=== PATIENT | female | born 1970 | race African-American/Black ===

== ENCOUNTER 2019-11-30 11:49 | Emergency (ER) | payer BC ==
[~2019-11-30] VITALS: Ht 167.6 cm; Wt 85.5 kg
--- NOTE | 2019-11-30 14:30 | Diagnostic Imaging Report ---
Exam: Right forearm radiographs-2 views; right wrist radiographs-3 views History: Fall, pain. Comparison: None. Findings/impression: There is a nondisplaced fracture of the distal radial metaphysis with intra-articular extension. Additional nondisplaced fracture of the ulnar styloid process. Surrounding soft tissue edema in the distal forearm, wrist, and visualized hand. Signed by: Dr. Eve Sharma MD on 11/30/2019 2:27 PM
--- NOTE | 2019-11-30 14:55 | Emergency Department Note ---
History of Present Illnes History of Present Illness Chief Complaint: Extremity Trauma/Pain History of Present Illness This is a 49 year old female Chief Complaint Comment Reports that she slipped and fell on the tile on Sunday and caught herself with her right hand to not hit her head and had pain in her wrist and hand all day yesterday but controlled the pain with tylenol and motrin. Pt now has significant swelling to the right hand with pain in the wrist with limited ROM. . Historian: Patient Arrival Mode: Car Onset (how long ago): day(s) (2) Location: right wrist Quality: sharp Radiation: Denies non-radiation, Denies back, Denies neck, Denies extremity, Denies abdomen, Denies periumbilical, Denies flank, Denies proximal, Denies distal, Denies other Severity: moderate Onset quality: gradual Duration (how long): day(s) (2) Timing of current episode: constant Progression: unchanged Chronicity: new Context: Denies recent illness, Denies recent surgery, Denies recent immobilization, Denies recent travel, Denies trauma/injury, Denies new medications, Denies hx of DVT/PE, Denies non-compliance w/ medications, Denies other Relieving factors: none Exacerbating factors: none Associated symptoms: Reports denies other symptoms Treatments prior to arrival: none Past Medical/Family History Physician Review I have reviewed the patient's past medical and family history. Any updates have been documented here. Past Medical History Recent Fever: No Clinical Suspicion of Infectio: No New/Unexplained Change in Ment: No Past Medical History: Diabetes Past Surgical History: None Social History Smoking Cessation: Never Smoker Counseling Performed: No Alcohol Use: Occasional Any Illegal Drug Use: No TB Exposure/Symptoms: No Physically hurt or threatened: No Family History Family history of heart diseas: Yes Other Any Pre-Existing Lines (PICC,: No Is patient up to date on immun: Yes Last Flu: UTD Last Pneumovax: none Review of Systems Review of Systems Constitutional: Reports no symptoms EENTM: Reports no symptoms Cardiovascular: Reports no symptoms Respiratory: Reports no symptoms Gastrointestinal: Reports no symptoms Genitourinary: Reports no symptoms Musculoskeletal: Reports as per HPI, Reports joint swelling Integumentary: Reports no symptoms Neurological: Reports no symptoms Psychological: Reports no symptoms Endocrine: Reports no symptoms Hematological/Lymphatic: Reports no symptoms Physical Exam Related Data Allergies: Coded Allergies: No Known Allergies (Unverified , 11/30/19) Triage Vital Signs Vital Signs Date Time Temp Pulse Resp B/P (MAP) Pulse Ox O2 Delivery O2 Flow Rate FiO2 11/30/19 12:10 98.5 88 18 166/105 100 Vital signs reviewed: Yes Physical Exam CONSTITUTIONAL Constitutional: Present well-developed, Present well-nourished HENT HENT: Present normocephalic, Present atraumatic, Present oropharynx clear/moist, Present nose normal HENT L/R: Present left ext ear normal, Present right ext ear normal EYES Eyes: Reports PERRL, Reports conjunctivae normal NECK Neck: Present ROM normal PULMONARY Pulmonary: Present effort normal, Present breath sounds normal CARDIOVASCULAR Cardiovascular: Present regular rhythm, Present heart sounds normal, Present capillary refill normal, Present normal rate GASTROINTESTINAL Abdominal: Present soft, Present nontender, Present bowel sounds normal GENITOURINARY Genitourinary: Present exam deferred SKIN Skin: Present warm, Present dry MUSCULOSKELETAL Musculoskeletal: Present ROM normal, Present tenderness (right ankle) NEUROLOGICAL Neurological: Present alert, Present oriented x 3, Present no gross motor or sensory deficits PSYCHOLOGICAL Psychological: Present mood/affect normal, Present judgement normal Results Imaging Imaging results reviewed: Yes Procedures Orthopedic Splinting/Casting Injury: Injury #1 Side: right Upper exremity injury location: wrist Upper extremity immobilizer: posterier splint Lower extremity injury locatio: upper leg Assessment & Plan Medical Decision Making MDM radius FX ULNA FX Reassessment Reassessment time: 14:52 Reassessment BETTER Assessment & Plan Final Impression: (1) Fracture of radius, distal, right, closed (2) Acute pain due to trauma Depart Disposition: HOME, SELF-CARE Last Vital Signs Date Time Temp Pulse Resp B/P (MAP) Pulse Ox O2 Delivery O2 Flow Rate FiO2 11/30/19 12:10 98.5 88 18 166/105 100 SANDRA CHEUNG MD Nov 30, 2019 14:55
[2019-11-30 15:06] VITALS: BP 159/96
--- NOTE | 2019-11-30 15:15 | Diagnostic Imaging Report ---
Exam: Right hand radiographs-3 views History: Trauma, pain. Comparison: Right wrist radiographs 11/30/2019. Findings/Impression: No evidence of acute fracture or malalignment in the hand. Soft tissue edema in the hand. Please refer to the concurrently performed wrist radiographs for details of distal radial fracture. Signed by: Dr. Eve Sharma MD on 11/30/2019 3:11 PM
== END 2019-11-30 15:06 | disposition home or self-care (01) ==
LOC: FSED 11:49
DX: M25.531 Pain in right wrist (principal); S52.501A Unspecified fracture of the lower end of right radius, initial encounter for closed fracture; S52.614A Nondisplaced fracture of right ulna styloid process, initial encounter for closed fracture; W01.0XXA Fall on same level from slipping, tripping and stumbling without subsequent striking against object, initial encounter; E11.9 Type 2 diabetes mellitus without complications
CPT/HCPCS: 99284

== ENCOUNTER 2020-08-18 15:44 | Emergency (ER) | payer SELFPAY ==
[~2020-08-18] VITALS: Ht 167.6 cm; Wt 85.3 kg
[2020-08-18] MEDS ORDERED: ULTRAM 50MG50 MG PO (16:13)
[2020-08-18] MEDS ORDERED: IBUPROFEN IB200 MG PO (16:13)
== END 2020-08-18 17:19 | disposition home or self-care (01) ==
LOC: FSED 16:10
DX: S16.1XXA Strain of muscle, fascia and tendon at neck level, initial encounter (principal); M25.511 Pain in right shoulder; Y93.83 Activity, rough housing and horseplay; Y92.008 Other place in unspecified non-institutional (private) residence as the place of occurrence of the external cause
CPT/HCPCS: 72040; 99283